=== PATIENT | male | born 1990 | race Caucasian/White ===

== ENCOUNTER 2017-07-10 13:34 | Outpatient (CLI) | payer OTHER | END 2017-07-10 15:00 | disposition home or self-care (01) | LOC: TOM 13:34 | DX: N20.0 Calculus of kidney (principal) ==

== ENCOUNTER 2017-08-24 10:09 | Outpatient (CLI) | payer OTHER | END 2017-08-24 10:21 | disposition home or self-care (01) | LOC: LAB 10:09 | DX: N20.0 Calculus of kidney (principal) ==

== ENCOUNTER 2017-10-19 07:08 | Outpatient (CLI) | payer OTHER | END 2017-10-19 07:10 | disposition home or self-care (01) | LOC: LAB 07:08 | DX: N20.0 Calculus of kidney (principal) ==

== ENCOUNTER 2017-12-10 08:33 | Outpatient (CLI) | payer OTHER | END 2017-12-10 08:39 | disposition home or self-care (01) | LOC: LAB 08:33 | DX: N20.1 Calculus of ureter (principal) ==

== ENCOUNTER → 2017-12-13 09:47 | Outpatient (CLI) | payer OTHER | END | disposition home or self-care (01) | LOC: LAB 12-11 11:07 | DX: N20.0 Calculus of kidney (principal) ==

== ENCOUNTER 2018-06-21 10:52 | Outpatient (CLI) | payer OTHER | END 2018-06-21 11:03 | disposition home or self-care (01) | LOC: LAB 10:52 | DX: N20.0 Calculus of kidney (principal) ==

== ENCOUNTER 2018-08-14 10:31 | Outpatient (CLI) | payer OTHER | END 2018-08-14 13:52 | disposition home or self-care (01) | LOC: LAB 10:31 | DX: E83.52 Hypercalcemia (principal) ==

== ENCOUNTER 2018-08-16 10:24 | Outpatient (CLI) | payer OTHER | END 2018-08-16 10:38 | disposition home or self-care (01) | LOC: LAB 10:24 | DX: N20.0 Calculus of kidney (principal) ==

== ENCOUNTER → 2018-11-18 | Outpatient (CLI) | payer OTHER | END | disposition home or self-care (01) | LOC: RAD 11:48 | DX: N20.0 Calculus of kidney (principal) ==

== ENCOUNTER → 2019-05-24 13:28 | Outpatient (CLI) | payer OTHER | END | disposition home or self-care (01) | LOC: LAB 13:28 | DX: N20.0 Calculus of kidney (principal) ==

== ENCOUNTER 2019-11-21 08:46 | Outpatient (CLI) | payer OTHER | END 2019-11-21 08:57 | disposition home or self-care (01) | LOC: LAB 08:46 | PROVIDERS: ATTEND Urology | DX: N20.0 Calculus of kidney (principal) ==

== ENCOUNTER 2020-05-21 09:57 | Outpatient (CLI) | payer OTHER | END 2020-05-21 09:58 | disposition home or self-care (01) | LOC: LAB 09:57 | PROVIDERS: ATTEND Urology | DX: N20.0 Calculus of kidney (principal) ==

== ENCOUNTER 2020-05-24 06:39 | Outpatient (CLI) | payer OTHER | END 2020-05-24 06:49 | disposition home or self-care (01) | LOC: LAB 06:39 | PROVIDERS: ATTEND Urology | DX: N20.0 Calculus of kidney (principal) ==

== ENCOUNTER → 2020-12-08 08:09 | Outpatient (CLI) | payer OTHER | END | disposition home or self-care (01) | LOC: RAD 08:09 → LAB 08:09 | PROVIDERS: ATTEND Urology | DX: N20.0 Calculus of kidney (principal) ==

== ENCOUNTER 2021-01-19 15:04 | Outpatient (CLI) | payer OTHER | END 2021-01-19 15:05 | disposition home or self-care (01) | LOC: LAB 15:04 | PROVIDERS: ATTEND Urology | DX: N20.0 Calculus of kidney (principal) ==

== ENCOUNTER 2021-05-31 13:24 | Outpatient (CLI) | payer OTHER | END 2021-05-31 13:35 | disposition home or self-care (01) | LOC: LAB 13:24 | PROVIDERS: ATTEND Urology | DX: N20.0 Calculus of kidney (principal) ==

== ENCOUNTER 2021-07-22 10:55 | Outpatient (CLI) | payer OTHER ==
[2021-07-22] MEDS ORDERED: HYDROCHLOROTHIA25 MG PO (12:48)
[2021-07-22] MEDS ORDERED: KETO10TA2 PO (14:49)
== END 2021-07-22 11:09 | disposition home or self-care (01) ==
LOC: RAD 10:55
PROVIDERS: ATTEND Urology
DX: N20.0 Calculus of kidney (principal)

== ENCOUNTER 2021-07-22 12:11 | Emergency (ER) | payer OTHER ==
[~2021-07-22] VITALS: Ht 172.7 cm; Wt 70.3 kg
[2021-07-22] MEDS ORDERED: HYDROCHLOROTHIA25 MG PO (12:48)
[2021-07-22] MEDS ORDERED: KETO10TA2 PO (14:49)
== END 2021-07-22 15:29 | disposition home or self-care (01) ==
LOC: ER 12:11
DX: R10.12 Left upper quadrant pain (principal)

== ENCOUNTER 2021-11-22 06:43 | Outpatient (CLI) | payer OTHER ==
[~2021-11-22 06:43] MED LIST: HYDROCHLOROTHIA25 MG PO; KETO10TA2 PO
== END 2021-11-22 06:54 | disposition home or self-care (01) ==
LOC: LAB 06:43
PROVIDERS: ATTEND Urology
DX: N20.0 Calculus of kidney (principal)

== ENCOUNTER 2022-01-17 07:07 | Outpatient (CLI) | payer OTHER | END 2022-01-17 07:18 | disposition home or self-care (01) | LOC: LAB 07:07 | PROVIDERS: ATTEND Urology | DX: N20.1 Calculus of ureter (principal); Z01.812 Encounter for preprocedural laboratory examination; Z01.811 Encounter for preprocedural respiratory examination ==

== ENCOUNTER 2022-01-25 07:30 | Day surgery (SDC) | payer OTHER | END 2022-01-25 18:40 | disposition home or self-care (01) | LOC: CIR.AMB 07:30 | PROVIDERS: ATTEND Urology | DX: N20.1 Calculus of ureter (principal); Z20.822 Contact with and (suspected) exposure to COVID-19 ==

== ENCOUNTER 2022-02-02 12:14 | Outpatient (CLI) | payer OTHER | END 2022-02-02 12:23 | disposition home or self-care (01) | LOC: RAD 12:14 | PROVIDERS: ATTEND Urology | DX: N20.1 Calculus of ureter (principal) ==

== ENCOUNTER 2022-05-08 11:10 | Outpatient (CLI) | payer OTHER | END 2022-05-08 11:32 | disposition home or self-care (01) | LOC: LAB 11:10 | PROVIDERS: ATTEND Urology | DX: N20.0 Calculus of kidney (principal) ==

== ENCOUNTER 2023-05-16 08:53 | Outpatient (CLI) | payer OTHER | END 2023-05-16 09:09 | disposition home or self-care (01) | LOC: RAD 08:53 | PROVIDERS: ATTEND Urology | DX: N20.0 Calculus of kidney (principal) ==

== ENCOUNTER 2025-02-23 06:41 | Emergency (ER) | payer OTHER ==
[~2025-02-23] VITALS: Ht 172.7 cm; Wt 68.0 kg
[2025-02-23] MEDS ORDERED: 0.9 % SODIUM CHLORIDE 1,000 ML IV STA (08:11)
[2025-02-23] MEDS ORDERED: FAMOtidine 10 MG/ML (4ML VIAL) IV ONE (08:15)
[2025-02-23] MEDS ORDERED: KETOROLAC TROMETHAMINE 60 MG VIAL IM ONE ×2 (08:15→08:47)
[2025-02-23] MEDS ORDERED: ACETAMINOPHEN 500 MG GEL..CAP PO ONE ×2 (08:15→08:47)
[2025-02-23] MEDS ORDERED: FAMOtidine 200mg/20ml VIAL ONE (08:48)
[2025-02-23] MEDS ORDERED: ONDANSETRON HCL 2 MG/ML VIAL IV ONE (10:00)
[2025-02-23 10:05] LABS: BASO % 0.6 % (0.1-1.2); EOS # 0.17 (0.04-0.54); EOS % 4.9 % (0.7-7.0); LYMPH # 0.69 (1.18-3.74); LYMPH % 19.9 % (19.3-53.1); MEAN PLATELET VOLUME 9.90 fl (9.4-12.4); MONO # 0.52 (0.24-0.82); NEUT # 2.06 (1.56-6.13); NEUT % 59.3 % (34.0-71.1); RED CELL DISTRIBUTION WIDTH 12.5 % (11.6-14.4)
[2025-02-23 10:08] LABS: MONO % 15.0 % (4.7-12.5)
[2025-02-23 10:42] LABS: COVID-19 AG NEGATIVE (NEGATIVE)
[2025-02-23 10:47] LABS: ALT/SGPT 40.0 U/L (12-78); AST/SGOT 53.0 U/L (15-37); BILIRUBIN TOTAL 0.41 mg/dL (0.3-1.2); BUN CREA RATIO 13.0 (7.0-25.0); CREATININE SERUM 0.96 mg/dL (0.70-1.30); GFR 90.21; GLOBULINA 3.9 G/DL (2.4-3.5); GLUCOSE FASTING 76.0 mg/dL (65-100); OSMOLALITY SERUM 272.0 MOSM/KG (275-295)
[2025-02-23 13:08] LABS: URINE APPEARANCE Clear; URINE BILIRRUBIN Negative (NEGATIVE); URINE BLOOD Moderate; URINE COLOR Yellow; URINE GLUCOSE Negative (NEGATIVE); URINE KETONE 15 (NEGATIVE); URINE LEUKOCYTE Negative; URINE NITRATE Negative; URINE PROTEIN 30 (NEGATIVE); URINE UROBILINOGEN 1.0 E.U./dl
[2025-02-23 13:11] LABS: URINE BACTERIA 53.9 uL (0.0-1933); URINE EPITHELIAL CELLS 8.1 uL (0.0-38.8); URINE RBC 100.0 uL (0.0-20.8); URINE WBC 12.7 uL (0.0-23.2)
[2025-02-23 13:15] LABS: URINE CAST 0.73 uL (0.0-1.40)
== END 2025-02-23 16:04 | disposition home or self-care (01) ==
LOC: ER 06:42
DX: B34.9 Viral infection, unspecified (principal); Z20.822 Contact with and (suspected) exposure to COVID-19